=== PATIENT | female | born 1970 | race Caucasian/White ===

== ENCOUNTER → 2017-01-28 | Outpatient (CLI) | payer OTHER ==
[~2017-01-28] MED LIST: DIPH-437 PO; GADAVIST IV PRN; NAPR1TAB9 PO; SIMV40TA2 PO; SUMA100T16 PO; VERA120T15 PO; ZNTT/150 PO
--- NOTE | 2017-01-28 12:05 | DIAGNOSTIC IMAGING REPORT ---
BRAIN COMBO CLINICAL HISTORY: R51 [id number] Blurry vision, left eye COMPARISON STUDY: No previous studies for comparison. TECHNIQUE: Utilizing a 1.5 Trudi magnet and dedicated coil, multiplanar, multiecho imaging of the brain was performed pre and postcontrast administration. IV administration of 8.2 mL of Gadavist contrast was uneventful. FINDINGS: Diffusion weighted images show no evidence for an acute ischemic event. Coronal FLAIR images demonstrate multiple foci of increased signal within the periventricular deep white matter regions. Several small foci of increased signal are noted within the right to lesser extent left optic radiations. No evidence for abnormal postcontrast enhancement. Ventricular system is midline. IMPRESSION: 1. Multiple foci of increased signal within the periventricular deep white matter regions. 2. A demyelinating disorder such as multiple sclerosis must be considered. 3. No abnormal postcontrast enhancement. The above report was generated using voice recognition software. It may contain grammatical, syntax or spelling errors. Electronically signed by: Kasi Hamilton M.D. 01/28/2017 12:04 PM Dictated Date/Time: 01/28/2017 11:57 AM
== END | disposition home or self-care (01) ==
LOC: C.MRI 10:41
PROVIDERS: ATTEND Psychiatry & Neurology Neurology
DX: H53.8 Other visual disturbances (principal); R51 Headache; R90.89 Other abnormal findings on diagnostic imaging of central nervous system

== ENCOUNTER → 2017-03-18 | Outpatient (CLI) | payer OTHER ==
[~2017-03-18] MED LIST changes: -DIPH-437 PO
--- NOTE | 2017-03-18 12:12 | DIAGNOSTIC IMAGING REPORT ---
MRI CERVICAL SPINE COMBO CLINICAL HISTORY: G37.9 Demyelinating [id number] TECHNIQUE: Sagittal and axial T1, T2 and STIR images were obtained. Images were acquired before and after the administration of 8 cc of intravenous Gadavist. COMPARISON STUDY: No previous studies for comparison. There is a T1 vertebral body hemangioma. There is also an equivocal T2 vertebral body hemangioma. No intrinsic cervical cord lesions are visualized. There is no pathologic cervical cord enhancement. C2-3: There is no evidence of disc bulge or focal herniation. There is no spinal or foraminal stenosis. C3-4: There is no evidence of disc bulge or focal herniation. There is no spinal or foraminal stenosis. C4-5: There are no disc bulges or focal herniations. There is no spinal or foraminal stenosis. C5-6 :There is a mild circumferential disc bulge. There is no significant spinal or foraminal stenosis C6-7: There is no evidence of disc bulge or focal herniation. There is no evidence of spinal or foraminal stenosis. C7-T1: There is no evidence of disc bulge or focal herniation. There is no evidence of spinal or foraminal stenosis. The examination is somewhat compromised due to motion artifact. IMPRESSION: 1. Mild C5-C6 disc bulge 2. No cord lesions are visualized. There is no pathologic enhancement. Electronically signed by: Wayne Hawkins M.D. 03/18/2017 12:11 PM Dictated Date/Time: 03/18/2017 12:07 PM
== END | disposition home or self-care (01) ==
LOC: C.MRI 10:36
PROVIDERS: ATTEND Psychiatry & Neurology Neurology
DX: G37.9 Demyelinating disease of central nervous system, unspecified (principal)

== ENCOUNTER → 2017-07-22 | Outpatient (CLI) | payer OTHER ==
[~2017-07-22] MED LIST changes: +RANI150T85 PO; -ZNTT/150 PO
--- NOTE | 2017-07-22 11:09 | DIAGNOSTIC IMAGING REPORT ---
BRAIN COMBO FOR MS HISTORY: Abnormal MRI brain R93.0 White matter abnormality on MRI of brain TECHNIQUE: Multiplanar multisequence MRI of the brain was performed both before and after the intravenous administration of contrast. COMPARISON STUDY: 01/28/2017 FINDINGS: There are no areas of restricted diffusion to suggest acute infarction. The midline structures are intact. The paranasal sinuses are clear. The mastoid air cells are clear. The ventricles and sulci are within normal limits for age. There is no mass, hematoma, midline shift. The major vascular flow-voids at the skull base are well maintained. Postcontrast sequences show no areas of abnormal enhancement. Multiple foci of increased signal within the periventricular and deep white matter regions throughout both cerebral hemispheres. These are unchanged from the prior exam. It is consistent with a demyelinating disorder. Study is again negative for abnormal postcontrast enhancement. IMPRESSION: 1. Stable MRI of the brain compared to the prior exam of 01/28/2017. 2. Multiple foci of increased signal throughout both cerebral hemispheres consistent with multiple sclerosis. 3. No evidence for abnormal postcontrast enhancement. The above report was generated using voice recognition software. It may contain grammatical, syntax or spelling errors. Electronically signed by: Kasi Hamilton M.D. 07/22/2017 11:07 AM Dictated Date/Time: 07/22/2017 11:01 AM
== END | disposition home or self-care (01) ==
LOC: C.MRIBC 09:48
PROVIDERS: ATTEND Physician Assistant
DX: R93.0 Abnormal findings on diagnostic imaging of skull and head, not elsewhere classified (principal)

== ENCOUNTER 2023-09-27 05:03 | Observation (INO) ==
--- NOTE | 2023-09-10 09:46 | PAT Medication Instructions ---
Medication Instructions Date of Service September 10, 2023 Home Medications Medication Instructions Recorded tizanidine 4 mg tablet 4 mg PO TID PRN headache #90 tabs 09/28/19 diclofenac sodium 75 mg See Rx Instructions .Route 12/07/20 tablet,delayed release .COMPLEX #60 tabs fremanezumab-vfrm 225 mg/1.5 mL See Rx Instructions .Route 07/30/23 subcutaneous syringe (Ajovy .COMPLEX #3 ea Syringe) rizatriptan 10 mg disintegrating See Rx Instructions .Route 09/06/23 tablet .COMPLEX #12 tabs verapamil 120 mg tablet,extended 120 mg PO HS #30 tabs 09/06/23 release Medication List: rosuvastatin 40 mg tablet 40 mg PO HS tizanidine 4 mg tablet 4 mg PO TID PRN headache famotidine 20 mg tablet 20 mg PO BID oxycodone-acetaminophen 5 mg-325 mg tablet 1 tab PO Q6H PRN pain diclofenac sodium 75 mg tablet,delayed release See Rx Instructions .Route .COMPLEX albuterol sulfate 90 mcg/actuation aerosol inhaler 1 inh inhalation Q8H PRN sob cholecalciferol (vitamin D3) 50 mcg (2,000 unit) tablet (Vitamin D3) 50 mcg PO DAILY fremanezumab-vfrm 225 mg/1.5 mL subcutaneous syringe (Ajovy Syringe) See Rx Instructions .Route .COMPLEX gabapentin 300 mg capsule 300 mg PO HS rizatriptan 10 mg disintegrating tablet See Rx Instructions .Route .COMPLEX verapamil 120 mg tablet,extended release 120 mg PO HS MEDICATION INSTRUCTIONS: Continue as directed albuterol sulfate 90 mcg/actuation aerosol inhaler 1 inh inhalation Q8H PRN sob (use if needed; BRING TO HOSPITAL) ASK your surgeon for instructions diclofenac sodium 75 mg tablet,delayed release See Rx Instructions .Route .COMPLEX DO NOT take the morning of surgery cholecalciferol (vitamin D3) 50 mcg (2,000 unit) tablet (Vitamin D3) 50 mcg PO DAILY Take morning of surgery With a small sip of water, OTHERWISE NOTHING TO EAT OR DRINK AFTER MIDNIGHT: tizanidine 4 mg tablet 4 mg PO TID PRN headache famotidine 20 mg tablet 20 mg PO BID oxycodone-acetaminophen 5 mg-325 mg tablet 1 tab PO Q6H PRN pain rizatriptan 10 mg disintegrating tablet See Rx Instructions .Route .COMPLEX (if needed) Take evening before surgery verapamil 120 mg tablet,extended release 120 mg PO HS gabapentin 300 mg capsule 300 mg PO HS rosuvastatin 40 mg tablet 40 mg PO HS tizanidine 4 mg tablet 4 mg PO TID PRN headache famotidine 20 mg tablet 20 mg PO BID oxycodone-acetaminophen 5 mg-325 mg tablet 1 tab PO Q6H PRN pain rizatriptan 10 mg disintegrating tablet See Rx Instructions .Route .COMPLEX (if needed) Other Notes Check with Prescriber for Instructions: fremanezumab-vfrm 225 mg/1.5 mL subcutaneous syringe (Ajovy Syringe) See Rx Instructions .Route .COMPLEX If you have any questions please call us at [phone] or [phone] or [phone] or [phone]
--- NOTE | 2023-09-12 14:10 | Anesthesiology Consultation ---
Date of Service September 12, 2023 Assessment & Plan (1) Encounter for pre-operative examination: Chart Review Chart Review: Acceptable Risk for Surgery and Patient seen in Pre Admission Testing - Check test AM DOS Possible demyelinating disorder- will leave SAB to anesthesiologist discretion DOS (no fluid bolus order) - Patient is NOT an ideal OPJ candidate (currently 23 hour obs) Per PAT appt on 09/12/23, no recent illness/disease exposures, illness related symptoms, or recent illness/disease positive tests. Will leave to surgeon's discretion if preop Covid testing needed Patient last seen by neuro 09/06/23= Patient seen for follow up on migraines. Has been doing well with current treatments. Brain MRI done September 2019. Follows with rheum for fibromyalgia. Significant migraine improvement with Ajovy. Still has about 3-4 migraines per month on average. Maxalt effective for acute treatment. Will try adding verapamil as adjunctive medication for migraine control (had cough in the past- will monitor for recurrent of cough). Follow in in four months Teaching & Discussion Pre-Anesthesia Teaching/Discussion Notes: Instructed NPO after midnight before surgery,except medications with 15 cc of water. Medication instructions provided according to the [facility] guidelines. History Surgery Operation Date: 09/27/23 09:05 Proposed Procedures p Left Total Hip Arthroplasty - Topher Landon MD Height/Weight Height: 5 ft 1 in Weight: 77.5 kg Allergies Allergy/AdvReac Type Severity Reaction Status Date / Time formula with iron AdvReac Intermediate migraines Verified 09/10/23 10:40 [From Pregestimil] infant formula,iron, spec. AdvReac Intermediate migraines Verified 09/10/23 10:40 metabolic lactose. free [From Pregestimil] Medications Home Medications Medication Instructions Recorded Confirmed Last Taken rosuvastatin 40 mg tablet 40 mg PO HS 05/27/19 09/10/23 Unknown tizanidine 4 mg tablet 4 mg PO TID PRN headache #90 tabs 09/28/19 09/10/23 Unknown famotidine 20 mg tablet 20 mg PO BID 12/04/19 09/10/23 Unknown oxycodone-acetaminophen 5 mg-325 1 tab PO Q6H PRN pain 12/04/19 09/10/23 Unknown mg tablet diclofenac sodium 75 mg See Rx Instructions .Route 12/07/20 09/10/23 Unknown tablet,delayed release .COMPLEX #60 tabs albuterol sulfate 90 mcg/actuation 1 inh inhalation Q8H PRN sob 04/11/23 09/10/23 Unknown aerosol inhaler cholecalciferol (vitamin D3) 50 50 mcg PO DAILY 04/11/23 09/10/23 Unknown mcg (2,000 unit) tablet (Vitamin D3) fremanezumab-vfrm 225 mg/1.5 mL See Rx Instructions .Route 07/30/23 09/10/23 Unknown subcutaneous syringe (Ajovy .COMPLEX #3 ea Syringe) gabapentin 300 mg capsule 300 mg PO HS 09/06/23 09/10/23 Unknown rizatriptan 10 mg disintegrating See Rx Instructions .Route 09/06/23 09/10/23 Unknown tablet .COMPLEX #12 tabs verapamil 120 mg tablet,extended 120 mg PO HS #30 tabs 09/06/23 09/10/23 Unknown release Past Medical History Medical History (Updated 09/13/23 @ 13:34 by Vy Oleary PA-C) Degenerative joint disease of both hips Demyelinating disease lumbar puncture inconclusive for MS follows with neuro for migraines no current issues Fibromyalgia Follow with rheum Ganglion cyst of right foot On right foot and right wrist as well GERD (gastroesophageal reflux disease) well controlled and stable Hx of bronchitis (2020) no current issues, reason for inhaler, rare use Hx of renal calculi Feb 2023 most recent episode Hyperlipidemia Migraines 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- s/p lumbar ablation at L3-L5 on 09/10/23- pain improved from previous per 09/12/23 PAT appt Sacroiliitis s/p lumbar ablation 09/10/23- pain improved from previous per 09/12/23 PAT appt Scoliosis of lumbar spine Seasonal allergies Exercise / Class Metabolic Activity II 4-5 Yardwork/Stairs/Walk up hill (one flight of stairs - no chest pain or SOB- increased hip and back pain ) Past Family History Family History Grandmother (Paternal) No pertinent family history Past Surgical History Surgical History History of Hx of cystoscopy w/ stent Hx of lithotripsy Past Anesthesia History No Hx of Anesthesia Complications and No Family Hx of Anesthesia Complications History of PONV No Hx of PONV and No Hx of Motion Sickness Social History Smoking Status: Current every day smoker Smoking cigarettes per day: 1 pack per day- advised Do You Dip or Chew Tobacco: No Hx Alcohol Use: No Hx Substance Use: No substance use type: does not use Review of Systems Patient denies chest pain, shortness of breath, dyspnea on exertion, cough, whee zing, palpitations. No hx of seizures, stroke, OK, apnea/snoring. No hx of blood clots or blood transfusions Physical Exam Vital Signs VITALS BP 120/70 P 69 TEMP 98.2 SP02 97% RESP 16 Constitutional no acute distress ENMT Mouth: no TMJ clicking Thyromental Distance: > or= 3.5 Finger Breadths (3.5) Mallampati Class: III Full dentures on top and bottom Neck neck extension not limited Respiratory normal respiratory effort; no respiratory distress Auscultation: lungs clear to auscultation bilaterally and + wheezes (mild throughout ) Cardiovascular Rate/Rhythm: regular rate and regular rhythm Heart Sounds: no murmur Vessels: no carotid bruit Musculoskeletal Spine: no pain with cervical ROM Extremities: extremities normal to inspection Psychiatric Orientation: alert Lab Results Anesthesia Preop Results Results Anesthesia Widget: WBC 14.27 K/ul (4.8-10.8) H 09/12/23 Hgb 15.9 g/dl (12.0-16.0) 09/12/23 Hct 47.2 % (37.0-47.0) H 09/12/23 Plt 220 K/uL (130-400) 09/12/23 Na 136 mmol/L (136-145) 09/12/23 K 4.0 mmol/L (3.5-5.1) 09/12/23 Cl 105 mmol/L (98-107) 09/12/23 CO2 28 mmol/L (21-32) 09/12/23 BUN 18 mg/dl (6-23) 09/12/23 Creat 0.71 mg/dl (0.6-1.2) 09/12/23 Glucose Level 83 mg/dl (70-99(Fasting)) 09/12/23 PT 10.9 Seconds (9.0-12.0) 09/12/23 PTT 27 Seconds (21-31) 09/12/23 INR 1.0 (0.9-1.1) 09/12/23 Blood Type A Positive 09/12/23 Antibody Screen NEGATIVE 09/12/23 Testing Laboratory Results Mild leukocytosis- surgeon's office informed- will leave to surgeon's discretion with how to proceed Electrocardiogram Date: 09/12/23 NSR with sinus arrhythmia at 63bpm Normal EKG per cardio Chest X-Ray Date: 09/12/23 FINDINGS: PA and lateral chest radiographs are obtained. No prior studies are available for comparison at the time of dictation. The cardiomediastinal silhouette is unremarkable. The lungs and pleural spaces are clear. There is no pneumothorax. The bony thorax appears intact. IMPRESSION: No active disease in the chest. Other Testing Brain MRI 10/06/19= No acute intracranial abnormality is identified. Again seen are numerous foci of T2 signal abnormality scattered throughout the subcortical and periventricular white matter. This is consistent with the reported history of a demyelinating disorder, and the distribution lesions has not appreciably changed from 10/06/2019. There is no associated abnormal postcontrast enhancement identified.
[2023-09-27] MEDS: dexAMETHasone**PF** 10 MG/ML VIAL IV SCH (06:02)
[2023-09-27] MEDS: LR 15ML/HR IV SCH (06:02)
[2023-09-27] MEDS: ACETAMINOPHEN 500 MG TAB PO SCH ×2 (06:02→10:56)
[2023-09-27] MEDS: Scopolamine 1 MG TDSY TD SCH (06:02)
[2023-09-27] MEDS: CeleBREX 200 MG CAP PO SCH (06:02)
[2023-09-27] MEDS: FAMOTIDINE 20 MG TAB PO SCH ×2 (06:02→10:55)
[2023-09-27] MEDS: LR 60ML/HR IV SCH (06:02)
[2023-09-27] MEDS: METOCLOPRAMIDE HCL 10 MG TABLET PO SCH (06:03)
[2023-09-27] MEDS ORDERED: ROPIVACAINE 0.5% 5 MG/ML 30 ML VIAL ONE (06:15)
[2023-09-27] MEDS ORDERED: MIDAZOLAM HCL 1 MG/ML 2ML VIAL ONE (06:25)
[2023-09-27] MEDS ORDERED: MoRPHine SULFATE PF 1 MG/ML 10 ML AMP/VIAL ONE (06:25)
[2023-09-27] MEDS ORDERED: fentaNYL citrate PF 100 MCG/2 ML VIAL ONE (06:25)
[2023-09-27] MEDS ORDERED: PROPOFOL IV EMULSION 10 MG/ML 20 ML VIAL IV ONE (06:25)
[2023-09-27] MEDS ORDERED: PROMETHAZINE HCL 6.25 MG in SODIUM CHLORIDE 0.9% 50 ML IV PRN (06:42)
[2023-09-27] MEDS ORDERED: ATROPINE SULFATE 0.1 MG/ML 10ML SYR IV PRN (06:42)
[2023-09-27] MEDS ORDERED: ONDANSETRON INJ 2 MG/ML 2 ML VIAL IV PRN ×2 (06:42→09:33)
[2023-09-27 06:46] LABS: Pregnancy Test, Serum Negative (Negative)
--- NOTE | 2023-09-27 06:47 | History & Physical Bridge Note ---
Date of Service September 27, 2023 History & Physical Bridge Note I have examined the patient, reviewed the History & Physical and in the interval since the performance of the History & Physical I have noted the following changes of clinical significance: no changes noted
[2023-09-27] MEDS: TRANEXAMIC ACID 1,000 MG **IV Pre-op IV SCH (06:50)
[2023-09-27] MEDS ORDERED: ROCURONIUM BROMIDE 10 MG/ML 5 ML VIAL IV ONE (07:16)
[2023-09-27] MEDS ORDERED: SUGAMMADEX SODIUM 200 MG/2 ML VIAL IV ONE (07:16)
[2023-09-27] MEDS ORDERED: ONDANSETRON INJ 2 MG/ML 2 ML VIAL ONE (07:16)
[2023-09-27] MEDS ORDERED: HYDROmorphone INJ 2 MG/ML SYR/VIAL ONE (07:27)
[2023-09-27] MEDS: BUPIVACAINE/EPINEPHRINE 0.5% MPF 1:200,000 30 ML VIAL ONE (08:08)
[2023-09-27] MEDS: KETOROLAC 30 MG/ML VIAL IV PRN (08:34)
[2023-09-27] MEDS: HYDROmorphone INJ 1 MG/ML SYRINGE IV PRN (08:34)
--- NOTE | 2023-09-27 08:39 | Operative Report ---
PG Post Operative Report Pre & Post Diagnosis Operation Date: 09/27/23 07:00 Pre-Op Diagnosis: Left Hip Degenerative Joint Disease Post-Op Diagnosis: Left Hip Degenerative Joint Disease I identified the patient and participated in the time-out.: Yes Procedure Operation Date: 09/27/23 07:00 Actual Procedures p Left Total Hip Arthroplasty(Left) - Topher Landon MD Surgeon Topher Landon MD [facility] López Singh PA-C Estimated Blood Loss 200 Findings Consistent with Post-Op Diagnosis Operative findings reveal advanced left hip DJD. She had grade 4 [id number] disease of the femoral head and acetabulum. She had significant anterior acetabular osteophytes. Moderate-sized joint effusion. Specimens Left femoral head sent for pathology Anesthesia Type General Complications none Disposition Accompanied Patient To Recovery: No Indications Patient is a 53-year-old female with multiple medical comorbidities had a several day history increasing bilateral hip pain and discomfort that is gradually gotten worse over time. She failed conservative measures. X-rays reveal advanced hip arthritis in both hips. She had fairly concentric disease. She elected proceed with left total hip arthroplasty. Description of Procedure Operative implants consist of: 1 Biomet G7 size 48 mm acetabular shell. 2. 6.5 cancellous acetabular screws 1 of 35 mm in length and 1 to 20 mm length. 3. [place] hole laundromat worker. 4. Highly cross-linked polyethylene liner with a 48 mm outer diameter and a 32 mm inner diameter. 5. DePuy Karaya size 10 KLA femoral stem. 6. +5/32 mm ceramic articular ball. The patient was taken to the operating, identified, placed on the operative table in supine position but all contractors were appropriately padded. IV antibiotics provided by anesthesia team. General anesthetic was implemented. The patient was then placed in the right lateral decubitus position. An axillary roll was placed. Distal Birkett position was used for positioning. The left hip and leg were then prepped and draped in usual sterile fashion. A posterolateral approach to the left hip was then performed to a curvilinear incision centered over the greater trochanter. Sharp dissection was carried through subcutaneous tissue down the of the IT band gluteal fascia. The IT band gluteal fascia was sized longitudinally in line with skin incision. The un derlying greater bursa was excised. The piriformis and external rotators along with the posterior joint capsule were then released from the posterior aspect the hip as a single layer. Hip was internally rotated and dislocated. Femoral neck osteotomy cut was made with a Final Cut about 12 mm above the lesser trochanter. Femoral head was removed and sent for pathology. The femur was retracted anteriorly. Attention drawn the acetabulum. The acetabular labrum was excised. Was fairly ossified. The pulmonary fat was excised. Sequential reaming the acetabular was then performed again with size 43 and progressing up to 47. We got pretty good but I did 47 and she did not have much medial osteophyte. I reamed a little bit with a 48 reamer and then placed a 48 mm Biomet G7 acetabular shell in about 40 degrees lateral opening and 20 degrees of anteversion. It was fixed with two 6.5 screws. Significant anterior osteophyte was excised. A trial liner was placed. Attention drawn the femur. The proximal femur was entered with a [employer] cutter followed by canal finder. Then broached beginning with size 8 progressing up to 10. Get excellent fitted to 10. We trialed the hip and the +5 articular ball recreated leg lengths and soft tissue appropriately. Hip was fully stable. I did realize a may lengthen this side just a little bit but we knew that they are working have to probably come back and do other side due to arthritis on that side in the future. We elect to place these implants. All trial implants were removed. [place] hole limiter was placed. Highly cross- linked polyethylene liner was placed. A size 10 KLA femoral stem was impacted in position. A +5/32 mm ceramic articular ball was placed. Hip was located once again found to be stable. Attention drawn toward closing. Wound was irrigated coconuts pulsatile lavage solution. I did inject locally with 60 cc of half percent Marcaine with epinephrine. Posterior capsule and external rotators then repaired through drill holes in the posterior trochanter with #2 Tycron suture. The IT band gluteal fascia were then closed in 1 PDS suture in running fashion the subcutaneous tissue then closed with 2 layers the deep layer #1 Vicryl suture and subcutaneous tissue with 2 Dexon suture in a buried interrupted fashion. Skin was closed skin katty. Leg was then cleaned and dried. A Prevena VAC dressing was applied. The patient was then brought out of general esthesia and transferred to the recovery room in stable condition. Patient tolerated the procedure well and there were no complications. López Singh, my physician registered dental assistant, was present for the entire procedure. His assistance was essential and required for appropriate patient positioning, prepping and draping, surgical exposure, performing the technical details of the operation, placement the implants, closure of the wound, and placement of the sterile bandage. I attest to the content of the Intraoperative Record and any orders documented therein. Any exceptions are noted below.
--- NOTE | 2023-09-27 09:25 | XRay Report ---
XR hip 1V LT w pelvis HISTORY: 53 years-old Female IN PACU - Post Surgical left hip arthroplasty COMPARISON: 09/12/2023 TECHNIQUE: AP view of the pelvis FINDINGS: Patient is mildly rotated. Satisfactory alignment of the left hip arthroplasty. Expected postoperativ e soft tissue swelling with deep tissue air and overlying skin katty. Severe right femoral acetabul ar osteoarthritis redemonstrated. IMPRESSION: Left hip arthroplasty with expected postoperative changes. ACT 112: Negative or not required by law. The above report was generated using voice recognition software. It may contain grammatical, syntax o r spelling errors. Electronically signed by: Jenaro Guadalupe M.D. 09/27/2023 9:23 AM
[2023-09-27] MEDS ORDERED: diphenhydrAMINE Capsule 25 MG CAP PO PRN (09:33)
[2023-09-27] MEDS ORDERED: HYDROmorphone INJ 0.5 MG/0.5 ML SYR IV PRN (09:33)
[2023-09-27] MEDS ORDERED: NALOXONE HCL 0.4 MG/1 ML VIAL/CARP IV PRN (09:33)
[2023-09-27] MEDS ORDERED: ALUMINUM/MAGNESIUM SUSP 30 ML UDC PO PRN (09:33)
[2023-09-27] MEDS ORDERED: METOCLOPRAMIDE HCL INJ 5 MG/ML 2 ML VIAL IV PRN (09:33)
[2023-09-27] MEDS ORDERED: HYDROmorphone HCL 2 MG TAB PO PRN (09:33)
[2023-09-27] MEDS ORDERED: ONDANSETRON 4 MG OD TAB PO PRN (09:33)
[2023-09-27] MEDS ORDERED: ALBUTEROL HFA 8 GM INHALER INH PRN (09:33)
[2023-09-27] MEDS ORDERED: NON-FORMULARY MEDICATION (Fremanezumab-Vfrm [Ajovy Syringe] 225 mg/1.5 mL syringe) SCH (09:33)
[2023-09-27] MEDS ORDERED: bisacodyL 10 MG SUPP PR PRN (09:33)
[2023-09-27] MEDS ORDERED: MAGNESIUM HYDROXIDE SUSP 30 ML UDC PO PRN (09:33)
[2023-09-27] MEDS ORDERED: tiZANidine HCL 4 MG TABLET PO PRN (09:33)
[2023-09-27] MEDS: ceFAZolin 2000MG 2,000 MG/15 ML SYR IV SCH (10:27)
[2023-09-27] MEDS ORDERED: RIZATRIPTAN BENZOATE 10 MG TAB PO PRN (10:30)
--- OUTSIDE RECORDS SUMMARY | 2023-09-27 10:31 | External Medical Summary | Summary of Care ---
Author Name Unknown Organization [facility] Address [address] [place] [address] Phone [phone] Care Team Providers Care Corporate Learning Consultant Name Role Phone Amparo Bae MD Primary Care Provider [phone] Encounter Details Date Type Department Care Team (Late st Contact Info) Description 09/24/2023 Orders Only PATIENT PORTAL DO NOT DELETE THIS DEPT USED BY MICHAEL NICHOLE [id number] Allergies No known active allergiesdocumented as of this encounter (statuses as of 09/24/2023) Medications Medication Sig Dispensed Refills Start Date End Date Status RANITIDINE HCL 150 MG PO CAPS 2 daily Active IBUPROFEN 800 MG PO TABSIndications:Lit brigido delivery, without mention of indication, unspecified as to episode of care(669.04) one tablet 3 times daily as needed for pain 30 Tab 2 10/16/2012 Active Additional Information Patient not taking.Reported on 12/15/2020 Albuterol Sulfate (ALBUTEROL HFA) 108 (90 BASE) MCG/ACT inhaler TAKE 2 PUFFS BY MOUTH 4 TIMES A DAY NEEDED FOR WHEEZE 5 03/17/2019 Active rosuvastatin (CRESTOR) 40 MG Tablet Take 40 mg by mouth daily. 3 03/17/2019 Active cyclobenzaprine (FLEXERIL) 10 MG Tablet every 6 hours as needed. 0 03/10/2019 Active diclofenac sodium (VOLTAREN) 75 MG TBEC TAKE 1 TABLET BY MOUTH TWICE A DAY NEEDED FOR PAIN WITH FOOD 2 03/20/2019 Active Gabapentin 600 MG Oral Tablet (Neurontin) Take 600 mg by mouth 3 times a day. Active Rizatriptan Benzoate 10 MG Oral Tablet Take 10 mg by mouth as needed for Migraine. Active Famotidine 20 MG Oral Tablet (Pepcid) Take 20 mg by mouth 2 times a day. Active Venlafaxine HCl ER 75 MG Oral Capsule Extended Release 24 Hour (Effexor XR) Take 75 mg by mouth daily. Active oxyCODONE-Acetaminoph en 5-300 MG Oral Tablet (Primlev) Take by mouth. Acti ve Ixtpqyaitm-YLHB-Yzknt ine 50-325-40 MG Oral Tablet (Fioricet) TAKE 1 TO 2 TABLETS BY MOUTH EVERY 4 HOURS NEEDED MAX 6 TABLETS /24 HRS 03/19/2017 Active Celecoxib 200 MG Oral Capsule (CeleBREX) Take 1 Capsule by mouth daily. 12/26/2020 Active Fluconazole 150 MG Oral Tablet (Diflucan) Take 1 Tablet by mouth. 04/16/2017 Active Fremanezumab-vfrm 225 MG/1.5ML Subcutaneous Solution Prefilled Syringe ([employer]) Inject 225 mg under the skin. Active LORazepam 0.5 MG Oral Tablet (Ativan) Take by mouth. 12/07/2016 Activ e Meloxicam 15 MG Oral Tablet Take 1 Tablet by mouth daily. Active Phentermine HCl 37.5 MG Oral Capsule Take 37.5 mg by mouth. 12/22/2020 Active SUMAtriptan Succinate 100 MG Oral Tablet TAKE 1 TABLET AT ONSET OF HEADACHE,MAY REPEAT IN 2 HOURS. UP TO 2 TABLETS IN 24 HOURS 02/09/2017 Active Simvastatin 10 MG Oral Tablet (Zocor) Take 1 Tablet by mouth daily. 04/15/2017 Active tiZANidine HCl 4 MG Oral Capsule Take 4 mg by mouth. 12/26/2020 Act romain Verapamil HCl 120 MG Oral Tablet (Isoptin) Take by mouth. Active documented as of this encounter (statuses as of 09/24/2023) Active Problems Problem Noted Date Diagnosed Date Chronic migraine without aur a without status migrainosus, not intractable 02/21/2021 DDD (degenerative disc disease), lumbar 02/22/20 21 Primary osteoarthritis of both hips 02/21/2021 Pure hypercholesterolemia 02/21/2021 Vitamin D deficiency 02/21/2021 Chronic pain syndrome 02/21/2021 ADVANCE DIRECTIVE INFORMATION 10/13/2012 Overview: No, Advance Directive brochure offered, patient declined. Obesity, Class II, BMI 35-39.9, isolated (see ac tual BMI) 08/13/2012 cardiovascular disease 07/30/2012 Supervision of other high-risk 013 Overview: ICD-10 update of inactive term Unspecified abnormalit y affecting management of mother, antepartum condition or complication 07/25/2012 History of gestational diabetes 07/25/2012 Prior complicated by IUGR, antepartum 07/25/2012 Kidney stone 04/08/2004 Overview: surgically removed 2004, passed spontaneously since then documented as of this encounter (statuses as of 09/24/2023) Resolved Problems Problem Noted Date Diagnosed Date Resolved Date ADVANCE DIRECTIVE INFORMATION 08/13/2012 08/13/2012 Overview: No, Advance Directive brochure offered, patient declined. documented as of this encounter (statuses as of 09/24/2023) Immunizations Name Administration Dates Next Due COVID-19 mRNA, LNP-s, No Pre serve, 2-Dose Series (Unbounce) 10/10/2020,09/19/2020 Seasonal Influenza, Quadrivalent, No Preserve, I M 01/06/2019 documented as of this encounter Social History Tobacco Use Types Packs/Day Years Used Date Smoking Tobacco: Every Day Cigarettes 1 24 Smokeless Tobacco: Never Comments:smokes 7-10 cigs/da y Alcohol Use Standard Drinks/Week Comments No 0 (1 standard drink = 0.6 oz pur e alcohol) denies during Sex and Gender Information Value Date Recorded Sex Assigned at Not on file Gender Identity Not on file Sexual Orientation Not on file Job Start Date Occupation Industry Not on file Not on file Not on file documented as of this encounter Plan of Treatment Health Maintenance Due Date Last Done Comments Pneumococcal Vaccine: Pediatrics (0 to 5 Years) and At-Risk Patients (6 to 64 Years) (1 of 2 - PCV) 1978 Depression Screening 1984 HIV Screening 06/23/1987 Hepatitis C Screening 1990 DTaP,Tdap,and Td Vaccines (1 - Tdap) 06/23/1991 Pap Smear 1993 Cologuard 2017 Colonoscopy 2017 Colorectal Cancer Screening 2017 Fecal Occult Blood Test 2017 Sigmoidoscopy 2017 Mammogram 04/21/2020 04/21/2019 Diabetes Screening 06/09/2022 06/10/2019, 0 09/20/2018, 01/20/1996 Lung Cancer Screening 2022 Zoster Vaccines (1 of 2) 2022 COVID-19 Vaccine (3 - season) 2022 10/10/2020, 09/19/2020 Lipid Panel 12/05/2023 12/04/2018, 12/24/2017 Influenza Vaccine (FLU shot) (Season Ended) 2023 01/24/2021, 01/25/2020, 01/21/2019, Additional history exists Cervical Cancer Screening 09/22/2025 HPV/Co-Test 09/22/2025 09/22/2020 Hepatitis B Completed 01/14/2006, 12/2005, 10/16/2005, Additional history exists GARDASIL-HPV IMMUNIZATION SERIES Aged Out No longer eligible based on patient's age to complete this topic MENINGOCOCCAL (MENACTRA/MENVEO) Aged Out No longer eligible based on patient's age to complete this topic documented as of this encounter Medical Devices Not on filedocumented as of this encounter Advance Directives * Full Code (Latest Code Status on File) Date Activated Date Inactivated Comments 10/14/2012 6:58 AM 10/16/2012 10:49 PM This order r eflects the patients wishes and were consensually agreed upon. Care Teams Corporate Learning Consultant Relationship Specialty Start Date End Date Amparo Bae MD [address] [place] [address] [phone] PCP - General Family Medicine 07/25/12 documented as of this encounter
[2023-09-27] MEDS: SODIUM CHLORIDE 0.9% 1,000 ML IV SCH (10:46)
[2023-09-27] MEDS: MULTIVITAMIN TAB PO SCH (10:55)
[2023-09-27] MEDS: DOCUSATE SODIUM 100 MG CAP PO SCH (10:55)
[2023-09-27] MEDS: ASPIRIN 81 MG ECTAB PO SCH (10:56)
[2023-09-27] MEDS: CHOLECALCIFEROL 25 MCG (1000 UNITS) TAB PO SCH (10:56)
[2023-09-27] MEDS: SENNA 8.6 MG TAB PO SCH ×2 (10:56→21:03)
--- NOTE | 2023-09-27 11:19 | Anesthesiology Progress Note ---
Date of Service September 27, 2023 Anesthesia Post Procedure Vital Signs Vital Signs: Temp Pulse Pulse Pulse Resp BP Pulse Ox 09/27/23 10:30 36.5 C 73 16 110/73 100 09/27/23 10:00 36.5 C 71 16 133/85 99 09/27/23 09:30 36.5 C 74 15 120/79 99 09/27/23 09:15 77 16 115/86 94 09/27/23 09:05 36.4 C L 88 20 122/87 97 09/27/23 08:55 80 12 124/67 99 09/27/23 08:45 82 14 160/92 H 100 09/27/23 08:35 85 12 135/78 100 09/27/23 08:25 36 C L 92 H 14 125/80 99 09/27/23 05:50 09/27/23 05:50 36.6 C 63 18 125/73 97 O2 Del Method O2 Flow Rate 09/27/23 10:30 Nasal Cannula 1 09/27/23 10:00 Nasal Cannula 2 09/27/23 09:30 Nasal Cannula 2 09/27/23 09:15 Nasal Cannula 2 09/27/23 09:05 Room Air 09/27/23 08:55 Oxymask 3 09/27/23 08:45 Oxymask 3 09/27/23 08:35 Oxymask 4 09/27/23 08:25 Oxymask 6 09/27/23 05:50 Room Air 09/27/23 05:50 Room Air Pain Intensity Bilateral Hip: Pain Intensity: 4 Left Hip: Pain Intensity: 5 Transfer of Care Handoff Completed per policy Notes Mental Status: alert / awake / arousable Patient Amnestic to Procedure: Yes Nausea / Vomiting: adequately controlled Pain: adequately controlled Airway Patency, RR, SpO2: stable & adequate BP & HR: stable & adequate Hydration State: stable & adequate Anesthetic Complications: no major complications apparent
[2023-09-27] MEDS: KETOROLAC 30 MG/ML VIAL IV SCH ×2 (12:41→19:17)
[2023-09-27] MEDS: ceFAZolin 1000MG 1,000 MG/7.5 ML SYR IV SCH (15:02)
[2023-09-27] MEDS: TRANEXAMIC ACID / 0.7% NACL 1,000 MG/100 ML BAG IV SCH (15:03)
[2023-09-27] MEDS: Scopolamine CHECK PATCH PLACEMENT SCH (16:38)
[2023-09-27] MEDS: ASCORBIC ACID 500 MG TAB PO SCH (16:39)
[2023-09-27] MEDS: GABAPENTIN 300 MG CAP PO SCH (21:00)
[2023-09-27] MEDS: ROSUVASTATIN CALCIUM 20 MG TAB PO SCH (21:00)
[2023-09-27] MEDS: VERAPAMIL HCL 120 MG TABCR PO SCH (21:02)
[2023-09-28 06:31] LABS: Basophils # (auto) 0.02 K/uL (0.00-0.20); Basophils % (auto) 0.1 %; Hematocrit (blood only) 37.6 % (37.0-47.0); Hemoglobin 12.5 g/dl (12.0-16.0); Immature Granulocytes # (auto) 0.08 K/uL (0.01-0.20); Immature Granulocytes % (auto) 0.5 %; Lymphocytes % (auto) 13.1 %; Mean Corpuscular Hemoglobin 31.5 pg (25.0-34.0); Mean Corpuscular Hgb Conc 33.2 g/dL (32.0-36.0); Mean Corpuscular Volume 94.7 fL (80.0-100.0); Mean Platelet Volume 10.8 fL (9.4-12.4); Monocytes # (auto) 0.84 K/uL (0.11-0.59); Monocytes % (auto) 4.8 %; Neutrophils # (auto) 14.35 K/uL (1.40-6.50); Neutrophils % (auto) 81.5 %; Platelet Count 177 K/uL (130-400); RDW Coefficient of Variation 13.4 % (11.5-14.5); RDW Standard Deviation 47.1 fL (36.4-46.3); Red Blood Count 3.97 M/uL (4.20-5.40); White Blood Count 17.59 K/ul (4.8-10.8)
[2023-09-28 06:47] LABS: Calcium 8.1 mg/dl (8.6-10.3); Creatinine Clr Calc Pharmacy 97.8 ml/min; Est GFR (African American) 119.7 ml/min; Est GFR (Non-African American) 103.3 ml/min; Potassium 3.4 mmol/L (3.5-5.1)
--- NOTE | 2023-09-28 07:47 | Surgery Progress Note ---
Date of Service September 28, 2023 Assessment & Plan (1) Status post left hip replacement: Plan: 53-year-old female postop day 1 from left hip replacement doing pretty well. Pains controlled. Hips located. She is neurologically intact. Plan: 1. DVT prophylaxis including thigh-high teds, SCDs, aspirin twice a day. 2. PT/OT. Weight-bear as tired. Left total hip protocol. Needs to obey hip precautions. 3. Pain control done okay with current pain regimen 4. wound management. She has a Prevena VAC dressing in place. Leave that on for 1 week. 5. Disposition plan to discharge home with some home health later today. Admission and Anticipated Discharge Date Admission Date: September 27, 2023 Subjective 53-year-old female postop day 1 from a left hip replacement. She is doing pretty well. Pain is controlled. She is hoping to go home today. She has been up and out of bed several times since surgery and getting around reasonably well. Physical Exam Physical Exam: Physical examination is a pleasant middle-age female patient lying bed looks pretty comfortable. Examination left hip and leg reveals the dressing be clean dry and intact. She does have a Prevena VAC dressing in place. Her thigh is soft and supple. Hips located. She is neurologically intact Respiratory: normal respiratory effort, lungs clear to auscultation Cardiovascular: RRR, no murmur, no edema Gastrointestinal (Abdomen): normal bowel sounds, soft, nontender, no hepatosplenomegaly Results & Data Vital Signs (Past 12 Hours) Vital Signs Temp Pulse Resp BP Pulse Ox O2 Del Method 09/28/23 07:10 36.8 C 59 L 16 94/56 L 98 Room Air 09/28/23 03:46 37 C 60 20 100/64 97 Room Air 09/27/23 23:00 36.9 C 75 18 99/60 L 97 Room Air 09/27/23 20:03 37 C 63 16 111/69 97 Room Air Laboratory Results Hemoglobin is 12.5. Hematocrit 37.6. Electrolytes are stable. PG Care Time/CCT Total # of Minutes Spent Total Time Spent with Patient: Total time spent is greater than 50% in coordination of care (as documented) at patient's floor/unit and/or counseling patient: Coding Level of Care Code 20675 Post Operative Follow-Up Diagnoses Status post left hip replacement Z96.642
[2023-09-28] MEDS: dexAMETHasone 10 MG in SYRINGE 0 ML IV SCH (08:39)
--- NOTE | 2023-10-18 07:56 | Discharge Summary ---
Date of Service October 18, 2023 Discharge Data Procedures Performed Operation Date: 09/27/23 07:00 Actual Procedures p Left Total Hip Arthroplasty(Left) - Topher Landon MD Hospital Course (1) Status post left hip replacement: This is a 53 year old patient admitted on 09/27/23 and underwent total hip arthroplasty. She tolerated the procedure well and there were no complications. Transferred to the PACU post op and later to the orthopedic floor for further care. She was given ancef for antibiotic prophylaxis. She was also given SUNNY stockings, SCDs, and aspirin for DVT prophylaxis. Hemoglobin, hematocrit, and vital signs were monitored during her hospital stay and remained stable. Did not require any blood transfusions. There were no complications during her hospital stay. By post op day #1 the patient was tolerating a regular diet, pain was reasonably controlled with oral pain medicine, and she was participating in physical therapy. On post op day #1 the patient was discharged home and set up with home health care. She was given printed discharge instructions including prescriptions for extra strength tylenol and aspirin. Continue hip precautions. Continue physical therapy, weight bearing as tolerated. Continue SUNNY stockings. Follow up approximately 2 weeks post op or sooner if there are problems or concerns. Coding Level of Care Code None Diagnoses Status post left hip replacement Z96.642
== END 2023-09-28 12:08 | disposition home health service (06) ==
LOC: ASU 05:03 → 3E 05:03
DX: F17.210 Nicotine dependence, cigarettes, uncomplicated; M16.12 Unilateral primary osteoarthritis, left hip; E78.5 Hyperlipidemia, unspecified; M79.7 Fibromyalgia; G43.909 Migraine, unspecified, not intractable, without status migrainosus; Z79.899 Other long term (current) drug therapy; Z91.011 Allergy to milk products; G35 Multiple sclerosis; M25.452 Effusion, left hip; M25.752 Osteophyte, left hip; Z79.82 Long term (current) use of aspirin; K21.9 Gastro-esophageal reflux disease without esophagitis